=== PATIENT | female | born 2000 | race Caucasian/White ===

== ENCOUNTER 2019-01-22 14:55 | Emergency (ER) | payer OTHER ==
[~2019-01-22] VITALS: Ht 180.3 cm; Wt 127.0 kg
[2019-01-22] MEDS ORDERED: KEFLEX500 M1 PO (15:27)
[2019-01-22 15:30] VITALS: BP 156/92
== END 2019-01-22 15:30 | disposition home or self-care (01) ==
LOC: M.ERS 14:55
DX: S40.862A Insect bite (nonvenomous) of left upper arm, initial encounter (principal); L03.114 Cellulitis of left upper limb; Z88.6 Allergy status to analgesic agent; Z88.8 Allergy status to other drugs, medicaments and biological substances; W57.XXXA Bitten or stung by nonvenomous insect and other nonvenomous arthropods, initial encounter; Y93.89 Activity, other specified; Y92.89 Other specified places as the place of occurrence of the external cause; Y99.8 Other external cause status

== ENCOUNTER 2019-01-26 22:27 | Emergency (ER) | payer OTHER ==
[~2019-01-26] VITALS: Ht 180.3 cm; Wt 127.0 kg
[~2019-01-26 22:27] MED LIST: KEFLEX500 M1 PO
[2019-01-26] MEDS ORDERED: CLEOCIN HCL150 MG PO (23:07)
[2019-01-27 01:04] VITALS: BP 161/68
== END 2019-01-27 01:04 | disposition home or self-care (01) ==
LOC: M.ERS 22:27
DX: L03.114 Cellulitis of left upper limb (principal); Z88.5 Allergy status to narcotic agent; Z88.8 Allergy status to other drugs, medicaments and biological substances; Z79.899 Other long term (current) drug therapy

== ENCOUNTER 2020-05-08 21:30 | Emergency (ER) | payer OTHER ==
[~2020-05-08] VITALS: Ht 180.3 cm; Wt 113.4 kg
[~2020-05-08 21:30] MED LIST changes: +CLEOCIN HCL150 MG PO
[2020-05-08] MEDS ORDERED: PENICILLIN V P500 MG PO (22:38)
[2020-05-08] MEDS ORDERED: HYDROCODON-ACE1 EAC7 PO (22:38)
[2020-05-08 23:00] VITALS: BP 124/76
== END 2020-05-08 23:00 | disposition home or self-care (01) ==
LOC: M.ERS 21:30
DX: S02.5XXA Fracture of tooth (traumatic), initial encounter for closed fracture (principal); J45.909 Unspecified asthma, uncomplicated; Z88.6 Allergy status to analgesic agent; Z88.8 Allergy status to other drugs, medicaments and biological substances; X58.XXXA Exposure to other specified factors, initial encounter; Y93.89 Activity, other specified; Y92.89 Other specified places as the place of occurrence of the external cause; Y99.8 Other external cause status